=== PATIENT | female | born 1930 | race Caucasian/White ===

== ENCOUNTER → 2017-12-03 | Outpatient (CLI) | payer BC | LOC: FIMAGING 12:43 | PROVIDERS: ATTEND Internal Medicine | DX: Z13.820 Encounter for screening for osteoporosis (principal); M81.0 Age-related osteoporosis without current pathological fracture; Z78.0 Asymptomatic menopausal state ==

== ENCOUNTER → 2018-12-06 | Outpatient (CLI) | payer BC | LOC: FIMAGING 09:23 | PROVIDERS: ATTEND Internal Medicine | DX: Z13.820 Encounter for screening for osteoporosis (principal); M81.0 Age-related osteoporosis without current pathological fracture; Z78.0 Asymptomatic menopausal state ==